=== PATIENT | female | born 1960 | race Asian ===

== ENCOUNTER 2019-12-07 08:52 | Emergency (ER) | payer OTHER ==
[~2019-12-07] VITALS: Ht 170.2 cm; Wt 50.3 kg
[2019-12-07 09:06] VITALS: TEMP 98.6
[2019-12-07 09:52] LABS: PLATELET COUNT 261 K/uL (152-353)
[2019-12-07 09:57] LABS: POTASSIUM 4.2 mmol/L (3.6-5.2); SODIUM 134 mmol/L (136-145)
[2019-12-07 10:01] LABS: PARTIAL THROMBOPLASTIN TIME 26.4 SECONDS (24.5-33.6)
[2019-12-07 10:28] VITALS: BP 173/80
== END 2019-12-07 10:34 | disposition home or self-care (01) ==
LOC: ED 08:52
PROVIDERS: Hospitalist
DX: I16.0 Hypertensive urgency (principal); F17.210 Nicotine dependence, cigarettes, uncomplicated; R00.0 Tachycardia, unspecified
CPT/HCPCS: 80053; 82550; 82553; 83880; 84484; 85027; 85610; 85730; 93005; 96374; 96375; 99284; J0360